=== PATIENT | female | born 1950 | race African-American/Black ===

== ENCOUNTER → 2018-03-14 | Day surgery (SDC) | payer OTHER ==
--- NOTE | 2018-03-16 14:33 | PATH ---
Surgical Pathology Report Patient Name: AMBER ADAMS [facility] [place]. Rec. #: [id number] /Age/Gender: 1950 (Age: 67) / F Account: [id number] Location: RADIOLOGY [facility] Taken: 03/14/2018 Received: 03/14/2018 Reported: 03/16/2018 Physicians: Pratima Mensah M.D. 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 Comment: Immunohistochemical stains performed and interpreted at [facility] for p63 and Smooth muscle myosin (SMM-HC) highlight myoepithelial cells. Electronically Signed Marium Church M.D. Gross Description Received in formalin labeled "left 7:00" are multiple clark-yellow, cylindrical portions of fibroadipose tissue ranging from 0.2-0.7 cm in length and averaging 0.1 cm diameter. The specimens are submitted in toto in one cassette. Time in formalin: 10:30 AM Total formalin fixation time: Between 8-9 hours. GARRISON/03/14/2018 francisca/03/14/2018
== END | disposition home or self-care (01) ==
LOC: JRADUS-SUR 09:36
PROVIDERS: ATTEND Internal Medicine
PROC: 0HBU3ZX Excision of Left Breast, Percutaneous Approach, Diagnostic (ICD-10-PCS; principal; 2018-03-14)
DX: N60.92 Unspecified benign mammary dysplasia of left breast (principal); D24.9 Benign neoplasm of unspecified breast
CPT/HCPCS: 19083; 87899; 88305-TC; 88341-TC; 88342-TC; A4648

== ENCOUNTER → 2019-04-28 | Day surgery (SDC) | payer OTHER ==
--- NOTE | 2019-05-01 16:20 | PATH ---
Surgical Pathology Report Patient Name: AMBER ADAMS [facility]. Rec. #: [id number] /Age/Gender: 1950 (Age: 68) / F Account: [id number] Location: [facility] RADIOLOGY U Taken: 04/28/2019 Received: 04/28/2019 Reported: 05/01/2019 Physicians: Pratima Perez M.D. Specimen(s) Received LEFT BREAST MASS 3-3:00 1-2:00 CM FN CORE BX Clinical History Ultrasound findings: Suspicious Probably intraductal papilloma, r/o CA Final Diagnosis BREAST, LEFT, 3:00-3:30, 1-2:00 CM FN, CORE BIOPSY: COMPLEX SCLEROSING LESION, WITH RARE ASSOCIATED CALCIFICATIONS. (SEE NOTE). Note: Myoepithelial immunohistochemical markers (SMM-HC & p63 performed at [facility]) demonstrate the presence of myoepithelial cells in the entrapped glandular component within the sclerotic stroma. This finding supports the diagnosis. Electronically Signed Nancy Verma M.D. Gross Description Received in formalin labeled "left breast 3:00-3:30, 1-2 cmfn," is a 0.8 x 0.7 x 0.1 cm aggregate of multiple clark-yellow, irregular to cylindrical portions of fibroadipose tissue. The formalin is filtered and the specimen is entirely submitted in one cassette. Time to formalin fixation: 2 minutes Total formalin fixation time: Approximately 6 hours. /04/28/2019 saudi/04/28/2019
== END | disposition home or self-care (01) ==
LOC: FRADUS-SUR 13:00
PROVIDERS: ATTEND Surgery Surgical Oncology
PROC: 0HBU3ZX Excision of Left Breast, Percutaneous Approach, Diagnostic (ICD-10-PCS; principal; 2019-04-28)
DX: N60.22 Fibroadenosis of left breast (principal); N64.89 Other specified disorders of breast; N63.23 Unspecified lump in the left breast, lower outer quadrant
CPT/HCPCS: 19083; 77065-TC; 87899; 88305-TC; 88341-TC; 88342-TC; A4648

== ENCOUNTER 2023-06-28 16:10 | Emergency (ER) | payer OTHER ==
[2023-06-28 16:20] VITALS: RESP 18; BMI 39.6
[2023-06-28 16:52] VITALS: BP 113/67; PULSE 62
[2023-06-28 17:11] VITALS: TEMP 99.5
[2023-06-28 19:05] LABS: BASO % 0.9 % (0-2.0); HEMATOCRIT 30.6 % (32.4-45.2); HEMOGLOBIN 10.1 GM/dL (10.7-15.3); LYMPH % 13.7 % (8-40); MCH 28.1 pg (25.7-33.7); MCHC 32.8 g/dl (32.0-36.0); MEAN CELL VOLUME 85.6 fl (80-96); MEAN PLT VOLUME 8.9 fl (7.5-11.1); MONO % 12.2 % (3.8-10.2); NEUT % 69.2 % (42.8-82.8); PLATELET COUNT 344 10^3/uL (134-434); RBC 3.58 M/mm3 (3.60-5.2); RDW 17.1 % (11.6-15.6); WHITE BLOOD COUNT 8.9 K/mm3 (4.0-10.0)
[2023-06-28 19:12] LABS: INR 1.1 (0.83-1.09); PROTHROMBIN TIME (PATIENT) 12.8 SEC (9.7-13.0)
[2023-06-28 19:23] LABS: POTASSIUM 3.6 mmol/L (3.5-5.1)
[2023-06-28 19:26] LABS: ALBUMIN 3.4 g/dl (3.4-5.0); BLOOD UREA NITROGEN 23.9 mg/dL (7-18)
[2023-06-28 19:29] LABS: CREATININE 1.3 mg/dL (0.55-1.3)
[2023-06-28 19:30] LABS: BILIRUBIN,TOTAL 0.7 mg/dL (0.2-1); TOT PROT 7.7 g/dl (6.4-8.2)
== END 2023-06-28 21:26 | disposition admitted as inpatient to this hospital (09) ==
LOC: JER 16:10
DX: K62.5 Hemorrhage of anus and rectum (principal); R10.9 Unspecified abdominal pain; R19.7 Diarrhea, unspecified; R50.9 Fever, unspecified; R42 Dizziness and giddiness; K64.4 Residual hemorrhoidal skin tags
CPT/HCPCS: 36415; 80053; 82272; 83735; 85025; 85610; 85730; 86850; 86900; 86901; 93005; 93010; 99284-25; 99285-25